=== PATIENT | female | born 1960 | race Caucasian/White ===

== ENCOUNTER 2018-11-16 19:51 | Emergency (ER) | payer MEDICARE, OTHER | END 2018-11-16 20:23 | LOC: NAV ERS 19:51 | DX: S60.444A External constriction of right ring finger, initial encounter (principal); I10 Essential (primary) hypertension; E03.9 Hypothyroidism, unspecified; G47.00 Insomnia, unspecified; G43.909 Migraine, unspecified, not intractable, without status migrainosus; F31.9 Bipolar disorder, unspecified; F41.9 Anxiety disorder, unspecified; F17.210 Nicotine dependence, cigarettes, uncomplicated; E55.9 Vitamin D deficiency, unspecified; W49.04XA Ring or other jewelry causing external constriction, initial encounter | CPT/HCPCS: 99283 ==